=== PATIENT | female | born 1955 | race Caucasian/White ===

== ENCOUNTER 2019-01-02 12:24 | Emergency (ER) | payer OTHER ==
[2019-01-02 12:32] VITALS: RESP 18
[2019-01-02] MEDS ORDERED: LIDOCAINE 5% PATCH TOPICAL STA (12:56)
--- NOTE | 2019-01-02 12:59 | XR ---
EXAMINATION TYPE: XR chest 2V DATE OF EXAM: 01/02/2019 COMPARISON: None INDICATION: Got out of bed this morning felt a pop anterior right mid ribs, pain with movement and in spiration TECHNIQUE: Frontal and lateral views of the chest are obtained. FINDINGS: The heart size is normal. The pulmonary vasculature is normal. The lungs are clear. Osseous structures appear intact. No acute fractures are evident. No pneumothor ax is evident. IMPRESSION: 1. No acute pulmonary process.
--- NOTE | 2019-01-02 13:00 | ED ---
General Adult HPI - General Chief complaint: Recheck/Abnormal Lab/Rx Stated complaint: Rib pain Time Seen by Provider: 01/02/19 12:38 Source: patient Mode of arrival: ambulatory Limitations: no limitations - History of Present Illness Initial comments: Dictation was produced using [employer] dictation software. please excuse any grammatical, word or spelling errors. Chief Complaint: 63-year-old female with past medical history of liver disease presents with right posterior thoracic pain. History of Present Illness: 63-year-old female she presents with right posterior thoracic back pain. Patient reports that she will this morning she went to stretch her back and she felt multiple cracks in her right posterior back. Eulalio gonzales continues to have significant posterior back pain. She does report significant tenderness with palpation to the right posterior back. Patient has any recent coughing. Denies any shortness of breath. No other symptoms. No history of DVT. No external symptoms. The ROS documented in this emergency department record has been reviewed and confirmed by me. Those systems with pertinent positive or negative responses have been documented in the HPI. All other systems are other negative and/or noncontributory. PHYSICAL EXAM: General Impression: Alert and oriented x3, not in acute distress HEENT: Normocephalic atraumatic, extra-ocular movements intact, pupils equal and reactive to light bilaterally, mucous membranes moist. Cardiovascular: Heart regular rate and rhythm, S1&S2 audible, no murmurs, rubs or gallops Chest: Lungs clear to auscultation bilaterally, no rhonchi, no wheeze, no rales, significant tenderness to palpation over the right posterior ribs approximately T7 to 10 Abdomen: Bowel sounds present, abdomen soft, non-tender, non-distended, no organomegaly Musculoskeletal: Pulses present and equal in all extremities, no peripheral edema Motor: no focal deficits noted Neurological: CN II-XII grossly intact, no focal motor or sensory deficits noted Skin: Intact with no visualized rashes Psych: Normal affect and mood ED course: 63-year-old female with chief complaint of rib pain. As upon arrival are within acceptable limits. X-ray obtained showing no acute processes. Laboratory evaluation obtained showing no acute processes. Patient's history of liver disease. Labs appear to be around baseline for her. Migel is aware of these. Patient given lidocaine p atch. She refused any by mouth or IV analgesics. Patient told to follow-up with her primary care physician. Patient counseled on non-medication therapies. She states she'll try them at home. EKG interpretation: Ventricular rate 70, normal sinus rhythm,. Interval 146, QS 90, QTc 432. No MA prolongation, no QTC prolongation, no ST or T-wave changes noted. No old EKG for comparison Overall, this EKG is unremarkable - Related Data Home Medications Medication Instructions Recorded Confirmed No Known Home Medications 01/02/19 01/02/19 Allergies Allergy/AdvReac Type Severity Reaction Status Date / Time aspirin Allergy Unknown Verified 01/02/19 13:14 Childhood Penicillins Allergy Unknown Verified 01/02/19 13:14 Review of Systems ROS Statement: Those systems with pertinent positive or pertinent negative responses have been documented in the HPI. ROS Other: All systems not noted in ROS Statement are negative. Past Medical History Past Medical History: Liver Disease Additional Past Medical History / Comment(s): pancreatitis History of Any Multi-Drug Resistant Organisms: None Reported Past Surgical History: Orthopedic Surgery, Tubal Ligation Past Psychological History: Anxiety, Bipolar, Depression, PTSD Smoking Status: Current every day smoker Past Alcohol Use History: None Reported Past Drug Use History: Marijuana General Exam Limitations: no limitations Course Vital Signs 01/02/19 12:27 Temperature 98.1 F Pulse Rate 80 Respiratory 18 Rate Blood Pressure 135/78 O2 Sat by Pulse 97 Oximetry Medical Decision Making - Lab Data Result diagrams: 01/02/19 14:00 01/02/19 14:00 Lab Results 01/02/19 01/02/19 Range/Units 14:00 14:00 WBC 2.6 L (3.8-10.6) k/uL RBC 3.87 (3.80-5.40) m/uL Hgb 13.4 (11.4-16.0) gm/dL Hct 39.8 (34.0-46.0) % MCV 103.0 H (80.0-100.0) fL MCH 34.6 (25.0-35.0) pg MCHC 33.6 (31.0-37.0) g/dL RDW 14.1 (11.5-15.5) % Plt Count 74 L (150-450) k/uL Neutrophils % 49 % Lymphocytes % 43 % Monocytes % 4 % Eosinophils % 3 % Basophils % 1 % Neutrophils # 1.3 (1.3-7.7) k/uL Lymphocytes # 1.1 (1.0-4.8) k/uL Monocytes # 0.1 (0-1.0) k/uL Eosinophils # 0.1 (0-0.7) k/uL Basophils # 0.0 (0-0.2) k/uL Manual Slide Review Performed Large Platelets Present Polychromasia Present Macrocytosis Slight Sodium 139 (137-145) mmol/L Potassium 4.3 (3.5-5.1) mmol/L Chloride 105 (98-107) mmol/L Carbon Dioxide 25 (22-30) mmol/L Anion Gap 9 mmol/L BUN 8 (7-17) mg/dL Creatinine 0.60 (0.52-1.04) mg/dL Est GFR (CKD-EPI)AfAm >90 (>60 ml/min/1.73 sqM) Est GFR (CKD-EPI)NonAf >90 (>60 ml/min/1.73 sqM) Glucose 103 H (74-99) mg/dL Calcium 9.1 (8.4-10.2) mg/dL Total Bilirubin 1.9 H (0.2-1.3) mg/dL AST 303 H (14-36) U/L ALT 277 H (9-52) U/L Alkaline Phosphatase 172 H (38-126) U/L Total Protein 8.7 H (6.3-8.2) g/dL Albumin 3.8 (3.5-5.0) g/dL Disposition Clinical Impression: Rib pain on right side Disposition: HOME SELF-CARE Condition: Good Instructions (If sedation given, give patient instructions): Costochondritis (ED) Is patient prescribed a controlled substance at d/c from ED?: No Referrals: Chas Melara MD [Primary Care Provider] - 1-2 days Time of Disposition: 15:08
[2019-01-02 14:36] LABS: ALT 277 U/L (9-52); AST 303 U/L (14-36); African American GFR (CKD) >90 (>60 ml/min/1.73 sqM); Albumin 3.8 g/dL (3.5-5.0); Alkaline Phosphatase 172 U/L (38-126); Anion Gap 9 mmol/L; Basophils % (A) 1 %; Blood Urea Nitrogen 8 mg/dL (7-17); Calcium 9.1 mg/dL (8.4-10.2); Carbon Dioxide 25 mmol/L (22-30); Chloride 105 mmol/L (98-107); Eosinophils # (A) 0.1 k/uL (0-0.7); Eosinophils % (A) 3 %; Glucose 103 mg/dL (74-99); HCT 39.8 % (34.0-46.0); HGB 13.4 gm/dL (11.4-16.0); Lymphocytes # (A) 1.1 k/uL (1.0-4.8); Lymphocytes % (A) 43 %; MCH 34.6 pg (25.0-35.0); MCHC 33.6 g/dL (31.0-37.0); Macrocytosis Slight; Mean Platelet Volume 7.8; Monocytes # (A) 0.1 k/uL (0-1.0); Monocytes % (A) 4 %; Neutrophils # (A) 1.3 k/uL (1.3-7.7); Neutrophils % (A) 49 %; Potassium 4.3 mmol/L (3.5-5.1); RBC 3.87 m/uL (3.80-5.40); RDW 14.1 % (11.5-15.5); Sodium 139 mmol/L (137-145); Total Bilirubin 1.9 mg/dL (0.2-1.3); Total Protein 8.7 g/dL (6.3-8.2); WBC 2.6 k/uL (3.8-10.6)
[2019-01-02 15:04] LABS: Large Platelets Present; Polychromasia Present
[2019-01-02 15:05] LABS: Platelet Count 74 k/uL (150-450)
[2019-01-02 15:25] VITALS: BP 137/75; PULSE 76; TEMP 98
== END 2019-01-02 15:20 | disposition home or self-care (01) ==
LOC: EC 12:24
DX: R07.81 Pleurodynia (principal); M54.6 Pain in thoracic spine; F17.200 Nicotine dependence, unspecified, uncomplicated; Z88.0 Allergy status to penicillin; Z88.6 Allergy status to analgesic agent; Z87.19 Personal history of other diseases of the digestive system
CPT/HCPCS: 36415; 71046; 80053; 85025; 93005; 99284

== ENCOUNTER → 2019-01-13 | Outpatient (CLI) | payer OTHER ==
--- NOTE | 2019-01-13 10:28 | CT ---
EXAMINATION TYPE: CT chest wo con DATE OF EXAM: 01/13/2019 COMPARISON: Chest x-ray January 02, 2019 HISTORY: SOB, Rt sided chest pain CT DLP: 357.7 mGycm. Automated Exposure Control for Dose Reduction was Utilized. TECHNIQUE: CT scan of the thorax is performed without IV contrast. High resolution protocol with 1 m m sequences obtained in 10 mm intervals in supine and prone technique. FINDINGS: LUNGS: Mild peripheral reticulation or fibrosis anterior left midlung axial image 15 with additional involvement left upper lobe anteriorly as there is some bleb formation also seen axial image 10. No s ignificant right-sided fibrosis or peripheral reticulation. No pleural effusion or pneumothorax bilat erally. No suspicious consolidation. No significant bronchiectasis. MEDIASTINUM: Lack of IV contrast is noted to limit evaluation for mediastinal and especially hilar ad enopathy. There are no definitive greater than 1 cm hilar or mediastinal lymph nodes. No cardiomega ly or pericardial effusion is seen. OTHER: Slight underlying scoliotic curvature. Spleen is bulky felt enlarged measuring 13.7 cm long ax is axial image 26. IMPRESSION: Mild fibrotic changes in the left lung anteriorly upper to mid lung levels. No significan t right-sided parenchymal fibrosis. Splenomegaly is noted which may warrant further clinical workup.
== END | disposition home or self-care (01) ==
LOC: RADCTMAIN 08:11
PROVIDERS: ATTEND Internal Medicine
DX: J84.10 Pulmonary fibrosis, unspecified (principal); R06.02 Shortness of breath; R94.5 Abnormal results of liver function studies
CPT/HCPCS: 36415; 71250; 80074; 83690

== ENCOUNTER → 2019-01-21 | Outpatient (CLI) | payer OTHER ==
[2019-01-21 10:42] LABS: HCT 39.8 % (34.0-46.0); HGB 13.3 gm/dL (11.4-16.0); MCH 34.8 pg (25.0-35.0); MCHC 33.4 g/dL (31.0-37.0); MCV 104.2 fL (80.0-100.0); Macrocytosis Slight; RBC 3.82 m/uL (3.80-5.40); RDW 14.3 % (11.5-15.5); WBC 2.4 k/uL (3.8-10.6)
[2019-01-21 10:43] LABS: INR 1.3 (<1.2); Prothrombin Time 13.6 sec (9.0-12.0)
[2019-01-21 10:49] LABS: Platelet Count 66 k/uL (150-450)
[2019-01-21 16:42] LABS: Alpha Fetoprotein, Tumor Mkr 40.2 ng/mL (0.0-7.9)
[2019-01-21 16:51] LABS: Albumin 3.4 g/dL (3.80-4.90); Albumin/Globulin Ratio 0.79 (1.60-3.17); Bilirubin, Conjugated 0.8 mg/dL (0.20-0.40); Bilirubin,Unconjugated 1.1 mg/dL; Globulin 4.3 g/dL (1.6-3.3); Total Bilirubin 1.9 mg/dL (0.3-1.2); Total Protein 7.7 g/dL (6.2-8.2)
== END | disposition home or self-care (01) ==
LOC: LABWHC1 09:36
PROVIDERS: ATTEND Physician Assistant
DX: B18.2 Chronic viral hepatitis C (principal)
CPT/HCPCS: 36415; 80074; 80076; 82105; 85027; 85610; 87522

== ENCOUNTER 2019-02-04 10:52 | Day surgery (SDC) | payer OTHER ==
[2019-01-30 16:12] VITALS: BMI 22.4
[~2019-02-04 10:52] MED LIST: LACTATED RINGERS 1,000 ML IV SCH; LIDOCAINE 1% 20 ML VIAL (10MG/ML) FOR IV START INTRADERMA PRN
[2019-02-04 12:25] VITALS: TEMP 97.1
[2019-02-04] MEDS ORDERED: PROPOFOL 10 MG/ML 20 ML VIAL IV ONE (12:40)
[2019-02-04] MEDS ORDERED: LIDOCAINE 1% INJ 10MG/ML (20 ML MDV) ONE (12:40)
--- NOTE | 2019-02-04 13:04 | P.PCN ---
Date of Procedure: 02/04/19 Procedure(s) Performed: Brief history: Patient is a pleasant 63-year-old white female scheduled for an elective upper endoscopy as well as colonoscopy as a part of evaluation of epigastric pain and change in bowel habits for the last several months duration. Procedure performed: Esophagogastroduodenoscopy with biopsy Colonoscopy Preoperative diagnosis: Gastric pain Change in bowel habits Anesthesia: MAC Procedure: After informed consent was obtained from the patient was brought into the endos copy unit and IV sedation was administered by anesthesia under continuous monitoring. Initially upper endoscopy was done. The Olympus GF 160 video endoscope was inserted inserted into the mouth and esophagus intubated without any difficulty and was gradually advanced into the stomach and duodenum and carefully examined. The bulb and second part of the duodenum appeared normal. The scope was then withdrawn into the stomach adequately insufflated with air and upon careful examination the antrum had mild antral gastritis and biopsies were done from this area. The body, cardia and fundus appeared normal. The scope was then withdrawn into the esophagus. The GE junction was located at 40 cm to the incisors. It appeared regular with no erythema erosions or ulcerations. Rest of the esophagus appeared normal. Patient tolerated the procedure well. At this time the patient continued to remain sedation. Initial digital rectal examination was normal. Olympus CF 160 video colonoscope was then inserted into the rectum and gradually advanced to the cecum without any difficulty. Careful examination was performed as the scope was gradually being withdrawn. The prep was excellent. The cecum, ascending colon, transverse colon, descending colon, sigmoid colon and rectum appeared normal. Retroflexion was performed in the rectum and weight 2 internal hemorrhoids were noted. Patient tolerated the procedure well. Impression: 1. Upper endoscopy revealed mild antral gastritis but no evidence of esophagitis or peptic ulcer disease 2. Colonoscopy was essentially within normal limits with no evidence of colorectal neoplasia , grade 2 internal hemorrhoids Recommendations: Findings of this examination were discussed with the patient as well as her family. she was advised to follow with the biopsy results. She'll be seen in office in 3-4 weeks. She can have a repeat colonoscopy in 10 years
[2019-02-04 13:23] VITALS: BP 118/67; PULSE 67; RESP 18
== END 2019-02-04 13:35 | disposition home or self-care (01) ==
LOC: ORWHC2ENDO 10:52
PROVIDERS: ATTEND Internal Medicine Gastroenterology
DX: K29.70 Gastritis, unspecified, without bleeding (principal); K64.1 Second degree hemorrhoids; B96.81 Helicobacter pylori [H. pylori] as the cause of diseases classified elsewhere; Z88.0 Allergy status to penicillin; Z88.6 Allergy status to analgesic agent; K70.30 Alcoholic cirrhosis of liver without ascites; K85.90 Acute pancreatitis without necrosis or infection, unspecified; B19.20 Unspecified viral hepatitis C without hepatic coma; Z98.51 Tubal ligation status
CPT/HCPCS: 88305; 88342; 45378; 43239; J2001; J2704

== ENCOUNTER → 2019-02-13 | Outpatient (CLI) | payer OTHER ==
--- NOTE | 2019-02-14 04:41 | MR ---
EXAMINATION TYPE: MR liver wo/w con DATE OF EXAM: 02/13/2019 COMPARISON: 06/30/2009 HISTORY: Cirrhosis of Liver CONTRAST: Standard multiplanar, multisequence MRI departmental protocol utilizing 6 mL intravenous Gadavist anayeli olinium contrast. FINDINGS: Spleen is slightly enlarged and measures 14 cm. There are numerous low signal foci throughout the spl een consistent with extensive calcification. The bile ducts are not dilated. There is no discrete hodan er mass. There is no evidence of a pancreatic mass. Gallbladder appears normal. The bile ducts are no t dilated. Pancreatic duct appears normal. There is no evidence of adrenal mass. Kidneys show normal size and contour. There is no hydronephrosi s. There is no retroperitoneal adenopathy. There is 1 cm cortical cyst upper pole right kidney. Stoma ch appears normal. There is no sign of ascites. There is no sign of pleural effusion. Heart size is n ormal. IMPRESSION: There is borderline splenomegaly. No specific sign of cirrhosis. No dilated ducts. Abdomen appears no t significantly different than old exam. Liver has normal size. Splenic calcifications consistent wit h old granulomatous disease.
== END | disposition home or self-care (01) ==
LOC: RADMRIMAIN 21:25
PROVIDERS: ATTEND Physician Assistant
DX: K74.60 Unspecified cirrhosis of liver (principal)
CPT/HCPCS: 74183; A9585

== ENCOUNTER 2021-01-04 22:08 | Emergency (ER) | payer OTHER ==
[2021-01-04 22:20] VITALS: BP 129/79; PULSE 89; RESP 20; TEMP 98
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
== END 2021-01-04 22:58 | disposition home or self-care (01) ==
LOC: EC 22:08
DX: F10.129 Alcohol abuse with intoxication, unspecified (principal); F41.9 Anxiety disorder, unspecified; F31.9 Bipolar disorder, unspecified; F43.12 Post-traumatic stress disorder, chronic; F12.90 Cannabis use, unspecified, uncomplicated; Z88.0 Allergy status to penicillin; Z88.5 Allergy status to narcotic agent; Z98.51 Tubal ligation status; Z86.19 Personal history of other infectious and parasitic diseases; Y90.9 Presence of alcohol in blood, level not specified
CPT/HCPCS: 99283